=== PATIENT | male | born 1980 | race Caucasian/White ===

== ENCOUNTER 2017-05-12 13:09 | Emergency (ER) | payer OTHER ==
[2017-05-12 13:18] VITALS: BP 142/90; PULSE 82; TEMP 99.3; BMI 32.5
--- NOTE | 2017-05-12 13:19 | PDOC ---
History of Present Illness - General Chief Complaint: Injury Stated Complaint: LEFT WRIST FRACTURE S/P FALL Time Seen by Provider: 05/12/17 13:10 History Source: Patient Exam Limitations: No Limitations - History of Present Illness Initial Comments: 05/12/17 13:11 This is an otherwise healthy 36-year-old RHD male who presents emergency department from an urgent care for orthopedic referral. Patient states he was in his usual state of health, while playing basketball this morning at 8:30 he accidentally fell. He struck his head, denies a loss of consciousness, denies amnesia but says the minutes preceding his fall he cannot recall. Patient had a laceration on the occipital scalp, and severe left wrist pain. He was seen at an outside urgent care where wound was stapled, he had an x-ray which demonstrates a vertical fracture through the distal radius which is nondisplaced. He was discharged from the urgent care and told to come to the emergency department. He has had a headache since falling PMH: Denies PSH: Denies Medication: Denies A LL: NKDA Social: Denies tobacco or drug use. Works as an electrical instrument repairer for the [employer] GENERAL/CONSTITUTIONAL: No: fever, chills, weakness, loss of appetite. HEAD, EYES, EARS, NOSE AND THROAT: No: change in vision, ear pain, discharge, sore throat, throat swelling. CARDIOVASCULAR: No: chest pain, lightheadedness, palpitations, syncope RESPIRATORY: No: cough, shortness of breath, wheezing, hemoptysis, stridor. GASTROINTESTINAL: No: nausea, vomiting, diarrhea, abdominal cramping, rectal bleeding, constipation. GENITOURINARY: No: dysuria, hematuria, frequency, urgency, flank pain. MUSCULOSKELETAL: Yes: left wrist pain No: back pain, neck pain, muscle swelling or pain SKIN : Yes: stapled scalp laceration No: lesions, pallor, rash or easy bruising. NEUROLOGIC: No: headache, vertigo, paresthesias, weakness ENDOCRINE: No: unexplained weight gain or loss HEMATOLOGIC/LYMPHATIC: No: anemia, easy bleeding, swelling nodes. GENERAL: The patient is in no acute distress. HEAD: (+) head trauma, occipital scalp laceration s/p yovany EYES: PERRLA, EOMI, sclera anicteric, conjunctiva clear. ENT: Ears normal, nares patent, oropharynx clear without exudates. Moist mucous membranes. NECK: Normal range of motion, supple without lymphadenopathy, JVD, or masses. LUNGS: Breath sounds equal, clear to auscultation bilaterally. No wheezes, and no crackles. HEART: Regular rate and rhythm, normal S1 and S2 without murmur, rub or gallop. ABDOMEN: Soft, nontender, normoactive bowel sounds. No guarding, no rebound. No masses palpable. EXTREMITIES: Normal range of motion, no edema. No clubbing or cyanosis. No erythema, or tenderness. NEUROLOGICAL: No focal neurological deficits. No paresthesias, fingers pink and well perfused, cap refil 2sec MUSCULOSKELETAL: (+) left wrist pain and swelling, placed in splint at outside facility SKIN: (+) Warm, Dry, normal turgor, no rashes or lesions noted. 05/12/17 13:19 05/12/17 13:36 Past History - Past Medical History Allergies/Adverse Reactions: Allergies Allergy/AdvReac Type Severity Reaction Status Date / Time No Known Allergies Allergy Verified 05/12/17 13:11 Home Medications: Ambulatory Orders Tramadol HCl [Ultram] 50 mg PO TID PRN #15 tablet MDD 3 05/12/17 - Psycho/Social/Smoking Cessation Hx Anxiety: No Suicidal Ideation: No Smoking History: Never smoked Hx Alcohol Use: No Drug/Substance Use Hx: No Substance Use Type: None Medical Decision Making - Medical Decision Making 05/12/17 13:[address] head (? LOC) Will refer to Ortho 05/12/17 14:[address]: No evidence of acute intracranial hemorrhage, edema, midline shift, mass effect or skull fracture. Prominent posterior ethmoid cells, right opacified, left with air-fluid levels *DC/Admit/Observation/Transfer Diagnosis at time of Disposition: Distal radius fracture, left Fall from standing Qualifiers: Encounter type: initial encounter Qualified Code(s): W19.XXXA - Unspecified fall, initial encounter Head trauma Qualifiers: Encounter type: initial encounter Qualified Code(s): S09.90XA - Unspecified injury of head, initial encounter Occipital scalp laceration Qualifiers: Encounter type: initial encounter Qualified Code(s): S01.01XA - Laceration without foreign body of scalp, initial encounter - Discharge Dispostion Disposition: HOME Condition at time of disposition: Stable Admit: No - Prescriptions Prescriptions: Tramadol HCl [Ultram] 50 mg PO TID PRN #15 tablet MDD 3 PRN Reason: Severe Pain - Referrals Referrals: Oziel Parsons MD [Staff Physician] - - Patient Instructions Printed Discharge Instructions: DI for Closed Head Injury, DI for Distal Radius Fracture, How to Take Care of Your Splint Additional Instructions: Please follow up with Dr. Issa MILAN Keep your splint in place Remove splint if your hand is swollen, color change, paresthesias, numbness, severe pain Return to the ER for any other concerns or complaints - Post Discharge Activity Work/School Note: Back to Work
[2017-05-12] MEDS ORDERED: traMADol HCL 50 MG TABLET PO ONE (13:27)
== END 2017-05-12 14:54 | disposition home or self-care (01) ==
LOC: FER 13:09
PROC: 2W3FX1Z Immobilization of Left Hand using Splint (ICD-10-PCS; principal; 2017-05-12)
PROC: 0HQ0XZZ Repair Scalp Skin, External Approach (ICD-10-PCS; 2017-05-12)
DX: S01.01XA Laceration without foreign body of scalp, initial encounter (principal); S52.502A Unspecified fracture of the lower end of left radius, initial encounter for closed fracture; S09.90XA Unspecified injury of head, initial encounter; Y93.67 Activity, basketball; Y92.310 Basketball court as the place of occurrence of the external cause
CPT/HCPCS: 70450-TC; 99282-25